=== PATIENT | male | born 1980 | race African-American/Black ===

== ENCOUNTER 2020-05-09 04:19 | Emergency (ER) | payer OTHER, SELFPAY ==
[2020-05-09 04:49] VITALS: BP 141/83; PULSE 96; RESP 16; TEMP 36.8; O2SAT 100; BMI 42.8
--- NOTE | 2020-05-09 05:25 | ED.BACK ---
HPI - Back Pain/Injury General Chief Complaint: Back Pain/Injury Stated Complaint: LOWER BACK PAIN Time Seen by Provider: 05/09/20 05:25 History of Present Illness HPI Narrative: This is a 39-year-old male with chronic back pain who presents with complaints of lower back pain and exacerbation sciatica for which he has been evaluated at [facility], by his primary care provider, and was recently seen on by his primary care provider's office. He will be scheduled for physical therapy and he was provided with a prescription for Flexeril at that time. Patient denies any associated urinary or fecal incontinence or numbness/tingling /weakness in either lower extremity. However, he does have sciatica associated with his lower back pain and has had previous x-rays as well as MRIs of his back. Patient states he wants pain medication. Related Data Home Medications Medication Instructions Recorded Confirmed buprenorphine-naloxone [Suboxone] 1 film BUCCAL DAILY 05/09/20 05/09/20 gabapentin 600 mg PO DAILY 05/09/20 05/09/20 lisinopril 40 mg PO DAILY 05/09/20 05/09/20 sildenafil 100 mg PO DAILY PRN 05/09/20 05/09/20 Allergies Allergy/AdvReac Type Severity Reaction Status Date / Time NSAIDS (Non-Steroidal Allergy Severe KIDNEY Verified 05/09/20 06:22 Anti-Inflamma DAMAGE [NSAIDS (NON-STEROIDAL ANTI-INFLAMMA] amoxicillin [AMOXICILLIN] Allergy Unknown SWELLING, Verified 05/09/20 06:22 anaphylaxis Penicillins [PENICILLINS] Allergy Unknown SWELLING Verified 05/09/20 06:22 Review of Systems Review of Systems: Pertinent positives and negatives as stated in HPI 10 point review of systems is otherwise negative. [facility] Past Medical History Source: nursing notes reviewed Medical History Hypertension Pre-diabetes Social History Social History Advance Directives: No Physical Exam Vital Signs and I&O and Narrative: Vital Signs and I&O: Vital Signs Temp 98.2 F 05/09/20 04:49 Pulse 96 05/09/20 04:49 Resp 16 05/09/20 04:49 BP 141/83 H 05/09/20 04:49 Pulse Ox 100 05/09/20 04:49 Intake & Output 05/08/20 05/08/20 05/09/20 06:59 18:59 06:59 Weight 131.542 kg Body Mass Index 42.8 VITAL SIGNS: Reviewed. GENERAL: Well developed, well nourished, in no acute distress. HEAD: Normocephalic/atraumatic, Posterior oropharynx was without edema, erythema or exudate. EYES: PERRLA, Pupils <>, EOMI intact without pain, no nystagmus/pallor/icterus noted EARS: Ext canals without abnormality, TMs non-bulging and non-erythematous NOSE: Nares patent bilateral OROPHARYNX: no oral lesions noted, posterior pharynx clear and non-erythematous without noted tonsillar enlargement/erythema/exudates NECK: Supple, no adenopathy LUNGS: Normal breath sounds. No adventitious sounds or accessory muscle use. SpO2<100> CARDIOVASCULAR: Regular rate and rhythm without noted murmurs, no JVD or lower extremity edema. ABDOMEN: Soft, non-tender, non-distended with bowel sounds. No rigidity. No guarding. No palpable masses or hernias noted MUSCULOSKELETAL: No tenderness, deformities, or effusions noted on gross inspection. EXTREMITIES: No cyanosis, clubbing or edema. SKIN: Inspection of the skin reveals no rashes, ulcerations, jaundice, pallor, or petechiae. NEUROLOGIC: Alert and oriented x 3. Strength and sensation to light touch were grossly intact x 4. Course Course Course Narrative: This is a 39-year-old male with history and clinical presentation consistent with chronic back pain that is currently being addressed by his primary care provider and there are no acute findings that would prompt further imaging or laboratory investigations as patient has had prior MRI and x-rays and is scheduled for physical therapy. Review of urinalysis was negative for evidence of any infection or blood. Patient was very upset regarding the plan to move forward with his primary care provider's recommendations but was stable for discharge for further follow-up. MDM - Back Pain/Injury Lab Data Labs: Lab Results 05/09/20 Range/Units 05:43 Urine Color YELLOW Urine Appearance CLEAR Urine pH 5.5 (5.0-8.0) Ur Specific Holmen >= 1.030 H (1.005-1.025) Urine Protein NEG (NEG-TRACE) MG/DL Urine Glucose (UA) NEG (NEG) MG/DL Urine Ketones 5 (NEG) MG/DL Urine Blood NEG (NEG) Urine Nitrite NEG (NEG) Ur Leukocyte Esterase NEG (NEG) Discharge Plan Discharge Clinical Impression: Chronic bilateral low back pain Qualifiers: Sciatica presence: with sciatica Sciatica laterality: sciatica laterality unspecified Qualified Code(s): M54.40 - Lumbago with sciatica, unspecified side Patient Disposition: Home, Self-Care Instructions: Chronic Back Pain (DC), Lower Back Exercises (ED) Additional Instructions: 1. resume all home medications as prescribed. 2. Tylenol 1000 mg, orally, every 6 hours as needed for pain control. Do not exceed 4000 mg within 24 hours. 3. lidocaine patch, available [id number] at every [employer] [employer], apply to area of maximal pain as directed on the outside packaging. 4. follow-up with your primary care provider regarding any additional referrals, imaging, or pain control. The patient and/or family acknowledge understanding of results (as applicable), diagnosis, treatment plan, need for follow up, and symptoms that should prompt a return to the emergency room. Prescriptions: No Action gabapentin 600 mg Tablet 600 mg PO DAILY RF: 0 sildenafil 100 mg Tablet 100 mg PO DAILY PRN (Reason: Sexual Activity) RF: 0 lisinopril 40 mg Tablet 40 mg PO DAILY RF: 0 buprenorphine-naloxone [Suboxone] 8-2 mg Film 1 film BUCCAL DAILY RF: 0 Referrals: Physician,Unknown [Primary Care Provider] - 2 days ( for further management of your chronic back pain.)
[2020-05-09 05:50] LABS: Glucose Urine UA NEG (NEG); Leukocyte Esterase Urine NEG (NEG); Nitrite Urine NEG (NEG); PH 5.5 (5.0-8.0); Specific Gravity - Urine >= 1.030 (1.005-1.025); Urine Blood NEG (NEG); Urine Ketones 5 MG/DL (NEG); Urine Protein NEG (NEG-TRACE)
[2020-05-09 05:53] LABS: Appearance Urine CLEAR; Color Urine YELLOW; UACC Culture Trigger NO
--- NOTE | 2020-05-09 06:20 | PC.NURSE ---
pt reports that he has been evaluated at [facility] for his back pain. recent radiology with no finding. pt has been attending physical therapy, and taking flexeril.
[2020-05-09] MEDS: Lidocaine 4 % Patch ADH..PATCH 1 PATCH TRANSDERMA (06:44)
[2020-05-09] MEDS: Acetaminophen 325 MG TABLET 975 MG PO (06:45)
== END 2020-05-09 07:12 | disposition home or self-care (01) ==
PROVIDERS: Emergency Provider Student in an Organized Health Care Education/Training Program
DX: M54.40 Lumbago with sciatica, unspecified side (principal)
CPT/HCPCS: 81003; 96372; 99283; 99284; J1885

== ENCOUNTER 2020-10-03 05:08 | Emergency (ER) | payer OTHER, SELFPAY ==
[2020-10-03 05:11] VITALS: BP 130/70; PULSE 94; RESP 16; TEMP 36.8; O2SAT 100; BMI 42.0
== END 2020-10-03 07:03 | disposition left against medical advice (07) ==
PROVIDERS: Emergency Provider Emergency Medicine
DX: J02.9 Acute pharyngitis, unspecified (principal); R51.9 Headache, unspecified; I10 Essential (primary) hypertension; R73.03 Prediabetes
CPT/HCPCS: 99281; 99282

== ENCOUNTER 2022-09-27 09:29 | Emergency (ER) | payer OTHER, SELFPAY ==
--- NOTE | ~2022-09-27 | CT_ITS ---
EXAMINATION: CT CERVICAL SPINE WITHOUT CONTRAST CLINICAL INFORMATION: Neck pain and arm COMPARISON: None TECHNIQUE: Thin section axial images with sagittal and coronal reformats obtained. This CT examination was performed using dose optimization techniques as appropriate, variously including the following: *Automated exposure control *Adjustment of mA and/or kV according to patient size (this includes techniques or standardized protocols for targeted exams where dose is matched to indication/reason for exam; i.e. extremities or head) *Use of iterative reconstruction technique DLP: 631 mGy-cm FINDINGS: Advanced anterior spondylitic changes observed C5-C6 but there is no fracture or destructive process. There is posterior spurring noted C7-T1. No significant encroachment on the spinal canal. Prevertebral soft tissues normal. CT/CT cervical spine wo IV con IMPRESSION: Degenerative change noted. No fracture.
--- NOTE | ~2022-09-27 | CT_ITS ---
EXAMINATION: CT HEAD WITHOUT CONTRAST CLINICAL INFORMATION: Left arm weakness COMPARISON: None TECHNIQUE: Contiguous axial imaging was performed from the skull base to vertex without intravenous administration of contrast. This CT examination was performed using dose optimization techniques as appropriate, variously including the following: *Automated exposure control *Adjustment of mA and/or kV according to patient size (this includes techniques or standardized protocols for targeted exams where dose is matched to indication/reason for exam; i.e. extremities or head) *Use of iterative reconstruction technique DLP: 693 mGy-cm FINDINGS: No intra or extra-axial fluid collection, hemorrhage, mass or mass effect. Calvarium is intact. Mucoperiosteal thickening in the ethmoid sinuses right greater than left is noted. CT/CT head/brain wo IV con IMPRESSION: No acute intracranial pathology.
[2022-09-27 10:01] VITALS: BP 144/92; PULSE 103; RESP 16; TEMP 36.6; O2SAT 98; BMI 41.3
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
== END 2022-09-27 14:16 | disposition left against medical advice (07) ==
PROVIDERS: Emergency Provider Emergency Medicine
DX: M54.12 Radiculopathy, cervical region (principal); R53.1 Weakness; I10 Essential (primary) hypertension; R73.03 Prediabetes; F17.200 Nicotine dependence, unspecified, uncomplicated; F11.20 Opioid dependence, uncomplicated; E66.9 Obesity, unspecified; Z68.41 Body mass index [BMI] 40.0-44.9, adult; Z79.899 Other long term (current) drug therapy
CPT/HCPCS: 70450; 72125; 99282; 99284